=== PATIENT | male | born 1990 | race African-American/Black ===

== ENCOUNTER 2017-03-27 13:47 | Emergency (ER) | payer BC ==
[2017-03-27 14:16] LABS: INFLUENZA A SCREEN NEGATIVE (NEGATIVE); INFLUENZA B SCREEN NEGATIVE (NEGATIVE)
== END 2017-03-27 14:37 | disposition home or self-care (01) ==
LOC: ER 13:47
PROVIDERS: Nurse Practitioner
DX: B34.9 Viral infection, unspecified (principal)
CPT/HCPCS: 87070; 87804; 87880; 99284; A9270-GY